=== PATIENT | male | born 1960 | race Caucasian/White ===

== ENCOUNTER 2021-08-08 10:43 | Emergency (ER) | payer OTHER ==
[~2021-08-08] VITALS: Ht 175.3 cm; Wt 89.4 kg
[2021-08-08] MEDS ORDERED: AMOXICILLIN500 MG PO (12:42)
== END 2021-08-08 13:52 | disposition home or self-care (01) ==
LOC: FER 10:43
DX: K04.7 Periapical abscess without sinus (principal); M26.602 Left temporomandibular joint disorder, unspecified; I10 Essential (primary) hypertension
CPT/HCPCS: 99283